=== PATIENT | female | born 1945 | race Caucasian/White ===

== ENCOUNTER 2017-09-10 12:12 | Inpatient (IN) | payer OTHER ==
[~2017-09-10] VITALS: Ht 172.7 cm; Wt 104.3 kg
--- NOTE | ~2017-09-10 | 2DMMODE ---
[facility] [place] [address] 2 D/M-MODE ECHOCARDIOGRAM Name: MEI DENIS Room #: 357-P ADM IN M.R.#: [id number] Admission: 09/10/17 Attend Phys: Lion Carnes MD Discharge: Date of : 45 Date of Service: 09/11/17 1207 Report #: [id number] THIS REPORT FOR: //name// APPROVED REPORT Study performed: 09/11/2017 08:10:48 EXAM: Comprehensive 2D, Doppler, and color-flow Echocardiogram Patient Location: Echo lab Room #: 357 Status: routine BSA: 2.17 HR: 76 bpm BP: 122/50 mmHg Rhythm: NSR Other Information Study Quality: Adequate Indications CVA. Hx: DM, HLP, obesity Echo Enhancing Agent Indication: Rule out Shunt Agent(s) / Amount(s) Used: Agitated Saline 6 cc 2D Dimensions RVDd: 30.20 mm LVEF(%): 74.85 (>50%) IVSd: 10.12 (7-11mm) LVOT Diam: 20.97 (18-24mm) LVDd: 46.57 mm PWd: 8.84 (7-11mm) Ascending Ao: 31.66 (22-36mm) LVDs: 26.25 (25-40mm) Aortic Root: 28.84 mm [place]agua's LVEF: 74.85 % Volumes Left Atrial Volume (Systole) Single Plane 4CH: 45.34 mL Single Plane 2CH: 54.67 mL LA ESV Index: 25.00 mL/m2 Aortic Valve AoV Peak Demar.: 2.03 m/s AO Peak Gr.: 16.50 mmHg LVOT Max P.46 mmHg AO Mean Gr.: 10.72 mmHg AO V2 Mean: 1.58 m/s LVOT Max V: 1.06 m/s [facility] [place] [address] 2 D/M-MODE ECHOCARDIOGRAM Name: MEI DENIS Room #: 357-P [facility] IN M.R.#: [id number] Admission: 09/10/17 Attend Phys: Lion Carnes MD Discharge: Date of : 45 Date of Service: 09/11/17 1207 Report #: [id number] AO V2 VTI: 53.23 cm GEMA Vmax: 1.79 cm2 Mitral Valve E/A Ratio: 0.8 MV Decel. Time: 185.90 ms MV E Max Demar.: 1.09 m/s MV A Demar.: 1.30 m/s MV PHT: 53.91 ms IVRT: 76.12 ms Pulmonary Valve PV Peak Demar.: 0.99 m/s PV Peak Gr.: 3.95 mmHg Pulmonary Vein P Vein S: 0.66 m/s P Vein A: 0.33 m/s P Vein D: 0.52 m/s P Vein A Dur.: 96.9 msec P Vein S/D Ratio: 1.27 Tricuspid Valve TR Peak Demar.: 2.33 m/s RAP Estimate: 5.00 mmHg TR Peak Gr.: 21.67 mmHg PA Pressure: 27.00 mmHg Left Ventricle The left ventricle is normal size. There is normal LV segmental wall motion. There is normal left ventricular wall thickness. Left ventricular systolic function is normal. LVEF is 60%. Mild diastolic dysfunction is present (impaired relaxation pattern). Right Ventricle The right ventricle is normal size. The right ventricular systolic function is normal. Atria The left atrium size is normal. No shunting noted by contrast bubble injection. The right atrium size is normal. Aortic Valve Aortic valve is mildly calcified, mildly stenotic. Trace aortic regurgitation. There is borderline mild valvular aortic stenosis. Calculated aortic valve area is 1.8 cm2 with maximum pressure gradient of 17 mmHg and mean pressure gradient of 11 mmHg. Mitral Valve Moderate mitral annular calcification. Trace [place] [address] 2 D/M-MODE ECHOCARDIOGRAM Name: MEI DENIS Room #: 357-P [facility] IN M.R.#: [id number] Admission: 09/10/17 Attend Phys: Lion Carnes MD Discharge: Date of : 45 Date of Service: 09/11/17 1207 Report #: [id number] evidence of mitral valve stenosis. Tricuspid Valve The tricuspid valve is normal in structure. Trace to mild tricuspid regurgitation. Estimated PAP is 25-30mmHg. Pulmonic Valve The pulmonary valve is normal in structure. Trace pulmonic regurgitation. Great Vessels The aortic root is normal in size. The ascending aorta is normal in size. IVC is normal in size and collapses >50% with inspiration. Pericardium There is no pericardial effusion. <Conclusion> Left ventricular systolic function is normal. There is normal LV segmental wall motion. LVEF is 60%. Mild diastolic dysfunction No shunting noted by contrast bubble injection. Aortic valve is mildly calcified, mildly stenotic. No insufficiency Calculated aortic valve area is 1.8 cm2 with maximum pressure gradient of 17 mmHg and mean pressure gradient of 11 mmHg. Moderate mitral annular calcification. Trace mitral regurgitation. Trace to mild tricuspid regurgitation. Estimated pulmonary artery pressure 25-30mmHg. There is no pericardial effusion. <ELECTRONICALLY SIGNED> By: Osvaldo Herbert MD, FACC 09/11/171206 06 06 Osvaldo Herbert MD, FACC /INF
--- NOTE | ~2017-09-10 | HC ---
[facility] [place] [address] CONSULTATION Name: GIULIAWILLMEI Ivett Room #: 357-P [facility] IN M.R.#: [id number] Admission: 09/10/17 Attend Phys: Lion Carnes MD Discharge: 09/11/17 Date of : 45 Report #: [id number] THIS REPORT FOR: //name// CC: Maeve Carnes DATE OF SERVICE: 09/10/2017 HISTORY OF PRESENT ILLNESS: This is a 72-year-old female patient who woke up this morning because her right side was incoordinated and weak. She still has the symptoms. She has improved to some extent, but has not recovered fully. The symptoms presently are moderately severe. She is still able to ambulate. She has no associated headache. Symptoms started spontaneously without any trauma. REVIEW OF SYSTEMS: Indicate she is a diabetic. She indicates that her diabetes is not as nicely controlled as it should be. She did have flu-like symptoms last week. At one time, she was told that she has some kidney problems. She indicated that she did 24-hour urine and then they have just observed her. Her GFR here is 40. She denied any history of atrial fibrillation. She was not on aspirin when this happened. She does not know what her last cholesterol was. Record indicate that she has a history of hyperlipidemia, endometrial cancer and type 2 diabetes. Otherwise, she feels back to her baseline. She does not believe she has any new eye, ENT, cardiac, respiratory, GI, , musculoskeletal, constitutional, dermatological, hematological, psychiatric, throat, allergic symptom associated with present symptomatology. She is a diabetic. PAST MEDICAL HISTORY: Positive for some kidney problems. FAMILY HISTORY: Negative for early age stroke. SOCIAL HISTORY: She does not smoke, but she does drink alcohol, but occasionally. PHYSICAL EXAMINATION: Indicate that she is alert, responsive, able to follow simple and complex command. Her speech, concentration, fund of knowledge and memory is at her baseline. Cranial nerve examination 2-12 is mostly unremarkable. She is weak in the right upper extremity. Her rapid finger tapping and alternate finger tapping is significantly impaired. She does have subjective decrease in sensation on the right side, but objectively she does feel on the right side. There is no cerebellar sign or papilledema. There is no carotid bruit. She is otherwise well developed individual who does not have any dysmorphic features of eyes, ears and face. Her vision and hearing looks adequate. She has no thyroid mass. There is no edema, cyanosis or jaundice. Cardiac examination shows unremarkable heart sounds and there is no murmur I can hear or any atrial fibrillation, no respiratory difficulty or rhonchi. Blood [address] [address] CONSULTATION Name: ADEELMEI M Room #: 357-P [facility] IN M.R.#: [id number] Admission: 09/10/17 Attend Phys: Lion Carnes MD Discharge: 09/11/17 Date of : 45 Report #: [id number] pressure is 153/63, respirations 16, pulse is 73, temperature is 97.7. Her labs indicate blood sugar is high and GFR is only 40. She did have a CT scan and MRI of the brain. They were reviewed. She does have an acute stroke in the left cerebral hemisphere, which would correlate with the patient's symptom. IMPRESSION: 1. Cerebrovascular accident. 2. Diabetes, which may be poorly controlled. 3. We need to look for hyperlipidemia. 4. Workup to determine secondary prophylaxis for the stroke. RECOMMENDATIONS: 1. PT, OT. 2. Lipid profile. 3. Full aspirin daily. 4. We will get a carotid Doppler stat to make sure there is no abnormality there. She does need an MRA of the head and neck. These symptoms started when she woke up and the stroke is small enough that is not going to be seen on perfusion images and her kidney function is back. I will not do a CT angio and will not give the dye to the patient. I will just get an MRA done. She probably needs to be on statin. She will be on full dose of aspirin. Depending upon the other workup, we may start the patient on Plavix also. All of it was discussed with the patient in detail and she wants to proceed with the above workup and we will follow this patient along with you. This patient will require some of the workup as an outpatient. She should 30 days event monitor to evaluate the patient for atrial fibrillations as an outpatient. She may or may not need RAMBO depending upon her regular echo which is already ordered. Thank you very much for this referral and if you have any question, please feel free to contact me. <ELECTRONICALLY SIGNED> By: Sukhwinder Yoder MD 09/14/17 2134 183 16 Sukhwinder Yoder MD /nt
--- NOTE | ~2017-09-10 | EKG ---
[place] [address] [facility] [place] [address] ELECTROCARDIOGRAM REPORT Name: MEI DENIS Room #: 357-P ADM IN M.R.#: [id number] Admission: 09/10/17 Attend Phys: Lion Carnes MD Discharge: Date of : 45 Report #: [id number] THIS REPORT FOR: //name// [facility] ED Test Date: 2017-09-10 Test Time: 13:20:30 Pat Name: MEI DENIS Department: Room: 357 Gender: F [employer]: balbir : 1945 Requested By: Christina Vicente Order Number: [id number] MD: Osvaldo Herbert Measurements Intervals [place]ion Rate: 72 P: 54 MI: 188 QRS: -61 QRSD: 150 T: 1 QT: 436 QTc: 478 Interpretive Statements Sinus rhythm RBBB and LAFB Baseline wander in lead(s) III No previous ECG available for comparison Electronically Signed On 09-11-2017 13:18:23 CDT by Osvaldo Herbert [email or web address] <ELECTRONICALLY SIGNED> By: Osvaldo Herbert MD, [facility] 09/11/17 1318 1320 1320 Osvaldo Herbert MD, FACC /EPI
[2017-09-10 12:13] VITALS: BP 139/50
[2017-09-10 13:01] LABS: ABSOLUTE NEUTROPHILS 5.2 thou/uL (1.4-8.2); BASOPHILS 0.5 % (0.0-2.0); EOSINOPHILS 2.5 % (0.0-3.0); HEMOGLOBIN 11.8 gm/dL (12.0-15.0); MCH 31.9 pg (26.0-34.0); MCHC 33.8 g/dL (28.0-37.0); MCV 94.2 fL (80.0-100.0); PLATELET COUNT 250 thou/uL (150-400); RBC 3.72 mil/uL (4.20-5.00); RDW 13.1 % (10.5-14.5)
[2017-09-10 13:08] LABS: CALCIUM 9.6 mg/dL (8.5-10.1); CREATININE 1.3 mg/dL (0.6-1.0); POTASSIUM 4.6 mmol/L (3.5-5.1)
[2017-09-10] MEDS ORDERED: METFORMIN HCL500 MG PO (13:11)
[2017-09-10] MEDS ORDERED: SYNTHROID50 MCG PO (13:11)
[2017-09-10] MEDS ORDERED: GLYBURIDE 2.52.5 MG PO (13:12)
[2017-09-10] MEDS ORDERED: LISINOPRIL10 MG PO (13:13)
[2017-09-10 14:32] VITALS: BP 139/50
[2017-09-10 15:21] VITALS: BP 147/53
[2017-09-10 15:30] VITALS: BP 153/63
[2017-09-10] MEDS ORDERED: LISINOPRIL2.5 MG PO (17:33)
[2017-09-10 19:26] VITALS: BP 150/65
[2017-09-11 00:02] VITALS: BP 139/51
[2017-09-11 05:53] VITALS: BP 134/50
[2017-09-11 06:46] LABS: HEMATOCRIT 28.4 % (37.0-47.0); MCH 32.2 pg (26.0-34.0); MCHC 33.9 g/dL (28.0-37.0); MCV 94.9 fL (80.0-100.0); RBC 2.99 mil/uL (4.20-5.00); RDW 13.1 % (10.5-14.5); WBC 7.1 thou/uL (4.0-11.0)
[2017-09-11 06:58] LABS: HEMOGLOBIN 9.6 gm/dL (12.0-15.0)
[2017-09-11 06:59] LABS: ALBUMIN 2.8 g/dL (3.4-5.0); ANION GAP 6 mmol/L (7-16); BUN 35 mg/dL (7-18); CALCIUM 8.9 mg/dL (8.5-10.1); CHLORIDE 108 mmol/L (98-107); CHOLESTEROL 193 mg/dL (<200); CO2 27 mmol/L (21-32); CREATININE 1.3 mg/dL (0.6-1.0); GLUCOSE 101 mg/dL (74-106); HDL CHOLESTEROL 41 mg/dL (>40); LDL CHOLESTEROL 115 mg/dL (<100); POTASSIUM 4.2 mmol/L (3.5-5.1); SGOT 15 U/L (15-37); SGPT 24 U/L (30-65); SODIUM 141 mmol/L (136-145); TC:HDL 4.7 Ratio (Not establshd); TOTAL BILIRUBIN 0.3 mg/dL (<0.1-1.0); TOTAL PROTEIN 6.1 g/dL (6.4-8.2); TRIGLYCERIDE 186 mg/dL (<150); VLDL 37 mg/dL (<40)
[2017-09-11 08:00] VITALS: BP 122/50
[2017-09-11] MEDS ORDERED: ASA5UEC PO (09:51)
[2017-09-11] MEDS ORDERED: ATORVASTATIN CA40 MG PO (09:51)
[2017-09-11 12:00] VITALS: BP 148/64
[2017-09-11 13:38] VITALS: BP 148/64
== END 2017-09-11 15:15 | disposition home or self-care (01) | DRG 64 ==
LOC: ER 12:12 → 3W 13:57 → EROBS 13:57 → 3W 15:05 → ENTRNSPT 09-11 15:06 → EDTRNSPTSTS 09-11 15:08 → 3W 09-11 15:15
PROVIDERS: Emergency Medicine; Hospitalist
DX: I63.9 Cerebral infarction, unspecified (principal); E43 Unspecified severe protein-calorie malnutrition; E11.9 Type 2 diabetes mellitus without complications; E03.9 Hypothyroidism, unspecified; E78.5 Hyperlipidemia, unspecified; Z96.1 Presence of intraocular lens; K21.9 Gastro-esophageal reflux disease without esophagitis; Z79.899 Other long term (current) drug therapy; Z85.89 Personal history of malignant neoplasm of other organs and systems; Z98.49 Cataract extraction status, unspecified eye; Z87.891 Personal history of nicotine dependence; Z90.710 Acquired absence of both cervix and uterus
CPT/HCPCS: 10879